=== PATIENT | female | born 1990 | race Caucasian/White ===

== ENCOUNTER → 2023-12-19 | Day surgery (SDC) | payer OTHER | END | disposition home or self-care (01) | LOC: JRADUS-SUR 13:22 | PROVIDERS: ATTEND Surgery | PROC: BH41ZZZ Ultrasonography of Left Breast (ICD-10-PCS; principal; 2023-12-19) | DX: D24.2 Benign neoplasm of left breast (principal) | CPT/HCPCS: 19285; A4648; 19281 ==

== ENCOUNTER → 2024-01-17 | Day surgery (SDC) | payer OTHER ==
[2024-01-16 15:56] VITALS: BMI 29.0
[~2024-01-17] MED LIST: ACETAMINOPHEN INJECTION 100 ML IVPB ONE; DEXAMETHASONE SOD PHOSPHATE 4 MG/1 ML VIAL ONE; KETOROLAC TROMETHAMINE 30 MG/1 ML VIAL ONE; LACTATED RINGERS SOLUTION 1,000 ML IV SCH; LIDOCAINE HCL/PF 2% SDV 5ML VIAL ONE; MIDAZOLAM HCL 2 MG/2 ML SINGLE DOSE VIAL ONE; ONDANSETRON 4 MG/2 ML VIAL IVPUSH PRN; PROMETHAZINE HCL 25 MG/1 ML VIAL IVPB PRN; PROPOFOL 20 ML ONE; ceFAZolin SODIUM 1 GM VIAL ONE; oxyCODONE HCL 5 MG TABLET PO PRN
[2024-01-17] MEDS: ceFAZolin SODIUM 1 GM VIAL IVPB ONE (10:18)
[2024-01-17] MEDS: LIDOCAINE HCL 1%, 10 MG/ML (20ML VIAL) NR ONE ×2 (10:28)
[2024-01-17] MEDS: ACETAMINOPHEN 1000 MG/100 ML BAG IVPB ONE (11:37)
[2024-01-17 12:49] VITALS: RESP 18
[2024-01-17 13:45] VITALS: BP 96/55; PULSE 66; TEMP 98.2
== END | disposition home or self-care (01) ==
LOC: JASU-SURG 04:05
PROVIDERS: ATTEND Surgery
PROC: 0HBU0ZX Excision of Left Breast, Open Approach, Diagnostic (ICD-10-PCS; principal; 2024-01-17 10:00)
DX: D24.2 Benign neoplasm of left breast (principal)
CPT/HCPCS: 76098-TC-FY; 81025; 88307-TC; 94760; J0131